=== PATIENT | male | born 1965 | race African-American/Black ===

== ENCOUNTER 2017-10-09 18:48 | Emergency (ER) | payer MEDICAID, OTHER ==
[~2017-10-09] VITALS: Ht 182.9 cm; Wt 92.0 kg
[~2017-10-09 18:48] MED LIST: FLUO10TA3; QUET100T; SERT50TA
[2017-10-09] MEDS ORDERED: IBUPROFEN 600MG TABLET PO ONE (19:00)
[2017-10-09 22:15] VITALS: BP 135/81
== END 2017-10-09 22:32 | disposition home or self-care (01) ==
LOC: ER 20:05
DX: M25.511 Pain in right shoulder (principal); F32.9 Major depressive disorder, single episode, unspecified; F17.200 Nicotine dependence, unspecified, uncomplicated
CPT/HCPCS: 73030; 99284

== ENCOUNTER 2018-04-17 20:12 | Emergency (ER) | payer OTHER ==
[~2018-04-17] VITALS: Ht 182.9 cm; Wt 82.0 kg
[2018-04-17] MEDS ORDERED: SODIUM CHLORIDE 0.9% 1,000 ML IV ONE (21:34)
[2018-04-17] MEDS ORDERED: ONDANSETRON HCL 4MG/2ML INJ IV STA (21:34)
[2018-04-17] MEDS ORDERED: MORPHINE SULFATE 4 MG/ML CPJ (NOT FOR IM USE) IV STA (21:34)
[2018-04-17] MEDS ORDERED: KETOROLAC 30MG/ML VIAL IV ONE (21:45)
[2018-04-18 01:06] LABS: CLARITY URINE CLEAR (CLEAR); COLOR URINE DARK YELLOW (YELLOW); KETONES URINE 1+ (NEGATIVE); LEUKOCYTE ESTERASE URINE NEGATIVE (NEGATIVE); NITRITE URINE NEGATIVE (NEGATIVE); OCCULT BLOOD URINE NEGATIVE (NEGATIVE); PH URINE 6.5 (4.5-8.0); PROTEIN URINE NEGATIVE (NEGATIVE); SPECIFIC GRAVITY URINE 1.029 (1.005-1.030)
[2018-04-18] MEDS ORDERED: DOXYCYCLINE HYCLATE 100MG CAPSULE PO ONE (01:15)
[2018-04-18] MEDS ORDERED: CEFTRIAXONE 1 G PREMIX 50 ML IV ONE (01:15)
[2018-04-18] MEDS ORDERED: MORPHINE SULFATE 4 MG/ML CPJ (NOT FOR IM USE) IV ONE (01:15)
[2018-04-18 01:46] LABS: *AMPHETAMINES SCREEN URINE PRESUMTIVE POSITIVE (NEGATIVE); *BARBITURATES SCREEN URINE NEGATIVE (NEGATIVE); *BENZODIAZEPINES SCREEN URINE NEGATIVE (NEGATIVE)
[2018-04-18 01:47] LABS: *COCAINE SCREEN URINE NEGATIVE (NEGATIVE); CANNABINOID URINE SCREEN PRESUMTIVE POSITIVE (NEGATIVE); METHADONE URINE SCREEN NEGATIVE (NEGATIVE); OPIATES URINE SCREEN PRESUMTIVE POSITIVE (NEGATIVE); PHENCYCLIDINE URINE SCREEN NEGATIVE (NEGATIVE)
[2018-04-18 01:49] VITALS: BP 149/78
== END 2018-04-18 01:52 | disposition left against medical advice (07) ==
LOC: ER 20:12
DX: N45.1 Epididymitis (principal); F12.10 Cannabis abuse, uncomplicated; F15.10 Other stimulant abuse, uncomplicated; F17.200 Nicotine dependence, unspecified, uncomplicated; Z79.899 Other long term (current) drug therapy
CPT/HCPCS: 76870; 80305; 81003; 93976; 96374; 96375; 96376; 99285; J0696; J1885; J2270; J2405; J7030; Z7610

== ENCOUNTER 2018-04-19 10:53 | Emergency (ER) | payer MEDICAID, OTHER ==
[~2018-04-19] VITALS: Ht 175.3 cm; Wt 82.0 kg
[2018-04-19] MEDS ORDERED: HYDROCODONE/ACETAMINOPHEN 10/325MG TABLET PO ONE (11:45)
[2018-04-19 13:19] VITALS: BP 154/80
== END 2018-04-19 13:21 | disposition home or self-care (01) ==
LOC: ER 10:53
DX: N45.1 Epididymitis (principal); F99 Mental disorder, not otherwise specified; F12.10 Cannabis abuse, uncomplicated; Z79.899 Other long term (current) drug therapy
CPT/HCPCS: 99283

== ENCOUNTER 2018-10-03 03:31 | Emergency (ER) | payer OTHER ==
[~2018-10-03] VITALS: Ht 182.9 cm; Wt 77.0 kg
[2018-10-03 03:42] VITALS: BP 149/93
== END 2018-10-03 05:30 | disposition left against medical advice (07) ==
LOC: ER 03:31
DX: Z53.21 Procedure and treatment not carried out due to patient leaving prior to being seen by health care provider (principal); F32.9 Major depressive disorder, single episode, unspecified; F17.200 Nicotine dependence, unspecified, uncomplicated; Z98.890 Other specified postprocedural states

== ENCOUNTER 2019-08-19 07:32 | Emergency (ER) | payer MEDICAID, OTHER ==
[~2019-08-19] VITALS: Ht 172.7 cm; Wt 83.0 kg
[2019-08-19 07:36] VITALS: BP 161/71
[2019-08-19] MEDS ORDERED: ACETAMINOPHEN 325MG TABLET PO ONE (08:30)
[2019-08-19] MEDS ORDERED: AZITHROMYCIN 500 MG TABLET PO ONE (10:15)
[2019-08-19] MEDS ORDERED: CEFTRIAXONE SODIUM 250 MG/VIAL IM ONE (10:15)
[2019-08-19 10:53] LABS: CLARITY URINE CLEAR (CLEAR); COLOR URINE YELLOW (YELLOW); KETONES URINE NEGATIVE (NEGATIVE); LEUKOCYTE ESTERASE URINE NEGATIVE (NEGATIVE); NITRITE URINE NEGATIVE (NEGATIVE); OCCULT BLOOD URINE NEGATIVE (NEGATIVE); PH URINE >=9.0 (4.5-8.0); PROTEIN URINE NEGATIVE (NEGATIVE); SPECIFIC GRAVITY URINE 1.018 (1.005-1.030); UROBILINOGEN URINE 0.2 E.U./dL (0.2-1.0)
[2019-08-19] MEDS ORDERED: NAPROXEN 250MG TABLET PO ONE (11:15)
== END 2019-08-19 11:19 | disposition home or self-care (01) ==
LOC: ER 07:36
DX: N45.1 Epididymitis (principal); N39.0 Urinary tract infection, site not specified; N50.82 Scrotal pain; R03.0 Elevated blood-pressure reading, without diagnosis of hypertension
CPT/HCPCS: 74176; 76870; 81003; 93976; 96372; 99285; J0696